=== PATIENT | female | born 1955 | race Caucasian/White ===

== ENCOUNTER 2022-06-02 10:44 | Emergency (ER) | payer OTHER ==
[~2022-06-02] VITALS: Ht 167.6 cm; Wt 77.1 kg
[~2022-06-02 10:44] MED LIST: ALEVE220 MG PO; HYDROCHLOROTHIA25 MG PO; IRON325 M1 PO; LEVOTHYROXINE88 MCG PO; LIOTHYRONINE SO5 MCG PO; OMEPRAZOLE20 MG PO; VITAMIN D400 UNI4 PO
[2022-06-02] MEDS ORDERED: HYDROCODON-ACE1 EA10 PO (14:55)
== END 2022-06-02 15:09 | disposition home or self-care (01) ==
LOC: ED 10:44
DX: S42.302A Unspecified fracture of shaft of humerus, left arm, initial encounter for closed fracture (principal); Z87.891 Personal history of nicotine dependence; W19.XXXA Unspecified fall, initial encounter
CPT/HCPCS: 73030; 99283-25

== ENCOUNTER 2022-06-13 08:40 | Day surgery (SDC) | payer OTHER ==
[~2022-06-13] VITALS: Ht 167.6 cm; Wt 76.4 kg
--- NOTE | ~2022-06-13 | OR ---
[facility] [address] [place] [address] [place] DATE OF OPERATION: 06/13/2022 SURGEON: Luis Alberto Genao MD PREOPERATIVE DIAGNOSIS: Displaced left proximal humerus fracture. POSTOPERATIVE DIAGNOSIS: Displaced left proximal humerus fracture. PROCEDURE PERFORMED: Open reduction and internal fixation of left proximal humerus. SUPERVISOR FLOOR ASSEMBLY: Navya Michael PA-C. Navya was present and critical for all portions of procedure. ANESTHESIA: General. BLOOD LOSS: 125 mL. IMPLANTS: Fatoumata 9 x 160 proximal humeral smiley with five screws. BRIEF HISTORY: Kerri is a 66-year-old female suffered a ground-level fall one week ago. She had a proximal humerus fracture was spiral and displaced 100% anteriorly. The fracture was felt to be a good candidate for IM smiley and this was discussed with her. She elected to proceed. DESCRIPTION OF PROCEDURE: Once consent was obtained, she was taken to the operating room. After adequate anesthesia, she was placed on the operating room table. All downside pressure points well padded. The left shoulder was prepped and draped in a standard sterile fashion. Shoulder was approached through a deltoid approach from the anterior corner of the acromion extending distally 3 inches. This was carried through skin and subcutaneous tissue. The anterior raphe was then opened up along access into the subacromial space. The guide pin for the humeral smiley system was then placed in a center-center position in PATIENT NAME: KERRI DUQUE OPERATIVE REPORT DATE OF : 51 REPORT #: [id number] PHYSICIAN: LUIS ALBERTO GENAO MD PCP: CINDY EASTMAN REPORT IS CONFIDENTIAL AND NOT TO BE RELEASED WITHOUT AUTHORIZATION [facility] [address], [place] [address] Draft the humeral head and advanced across the fracture into the humeral shaft. We did have some trouble getting the shaft reduced to the head segment. We made anterior approach and placed a clamp anteriorly and clamped the humerus together as best we could. The rotator cuff was then incised longitudinally and the opening drill was placed over the guide pin and advanced through the humeral head into the shaft. The humerus was quite capacious and no reaming was felt to be necessary. We selected 9 x 160 smiley and placed over the guide smiley and advanced it through the humeral head down into the shaft of the humerus with some manipulation to reduce the shaft. Once it was seated well, the three proximal screws were placed locking the head to the smiley. The distal interlocking screw was placed again, holding the shaft reduced as best we could. The calcar screw was then placed obliquely. Good reduction and good screw placement were visualized on the image intensifier. Wound was copiously irrigated with antibiotic solution. The rotator cuff was closed using #1 Vicryl. The deltoid was closed using 0 Vicryl and the subcutaneous tissue was closed using 0 StrataFix. The wound was stapled after cleansing and dressed with an Acticoat 7 dressing. She was awakened, taken to recovery room in satisfactory condition. All sponge, needle, and instrument counts were correct. Luis Alberto Genao MD BA/MODL /[id number] Copies: ~ PATIENT NAME: KERRI DUQUE OPERATIVE REPORT DATE OF : 51 REPORT #: [id number] PHYSICIAN: LUIS ALBERTO GENAO MD PCP: CINDY EASTMAN REPORT IS CONFIDENTIAL AND NOT TO BE RELEASED WITHOUT AUTHORIZATION
[~2022-06-13 08:40] MED LIST changes: +ALEVE220 M1 PO; +HYDROCODON-ACE1 EA10 PO; +METFORMIN HCL500 MG PO; +TURMERIC500 M3 PO
[2022-06-13] MEDS ORDERED: OXYCODONE HCL5 MG PO (11:56)
--- NOTE | 2022-06-13 12:05 | NUR ---
06/13/22 1205 Beronica Breaux 1158- PT ARRIVES TO PACU NONAROUSABLE TO STIMULI WITH AN OPA IN PLACE. RESP EVEN AND UNLABORED. OXYGEN SAT HIGH 90'S ON 6L VIA MASK.
--- NOTE | 2022-06-13 13:00 | NUR ---
[id number] BACK TO ROOM FROM PACU ON 2L VIA ID. RECEIVED REPORT FROM LUIS KOROMA. RESP EVEN AND UNLABORED. DENIES PAIN AND NAUSEA. LEFT ARM IN SLING. DRESSING HAS A SMALL AMOUNT OF RED DRAINAGE. CRYO CUFF IN PLACE AND RUNNING. PATIENT IS DRINKING WATER AND EATING JELLO. CALL LIGHT WTIHIN REACH.
--- NOTE | 2022-06-13 13:57 | NUR ---
PT HAS MET ALL DC CRITERIA AT THIS TIME. NO COMPLAINTS OF PAIN. TOLERATING FLUIDS AND FOOD. CALL LIGHT WITHIN REACH. NO ADDITIONAL NEEDS OR CONCERNS. PT WOULD LIKE TO GO HOME AT THIS TIME.
--- NOTE | 2022-06-13 13:57 | NUR ---
LE 1315: PT IS ASSISTED UP OOB WITH STANDBY ASSIST. SHE IS ABLE TO AMBULATE TO THE BATHROOM AND BACK. SHE VOIDS 450MLS OF PALE YELLOW URINE.
--- NOTE | 2022-06-13 14:44 | NUR ---
LE 1410: PT IS GIVEN VERBAL AND WRITTEN DC INSTRUCTIONS. SHE VERBALIZES UNDERSTANDING. QUESTIONS ARE ASKED AND ANSWERED. LE 1415: PT IS TAKEN TO FRIENDS VEHICLE VIA WC, SHE IS ABLE TO TRANSFER HERSELF WITHOUT ISSUE.
== END 2022-06-13 14:15 | disposition home or self-care (01) ==
LOC: DS 08:40
PROVIDERS: ATTEND Specialist
PROC: 3E0T3BZ Introduction of Anesthetic Agent into Peripheral Nerves and Plexi, Percutaneous Approach (ICD-10-PCS; 2022-06-13)
PROC: 0PSD04Z Reposition Left Humeral Head with Internal Fixation Device, Open Approach (ICD-10-PCS; principal; 2022-06-13 11:15)
DX: S42.202A Unspecified fracture of upper end of left humerus, initial encounter for closed fracture (principal); W18.30XA Fall on same level, unspecified, initial encounter
CPT/HCPCS: 73030; J0330; J0690; J1100; J2001; J2250; J2704; J2795; J3010; J7121